=== PATIENT | male | born 1990 | race Caucasian/White ===

== ENCOUNTER 2016-12-31 16:09 | Emergency (ER) | payer SELFPAY ==
[~2016-12-31] VITALS: Ht 175.3 cm; Wt 63.5 kg
[~2016-12-31 16:09] MED LIST: ACHD5005 PO; ACYC400T21 PO; CYCL10TA9 PO; MUPI22OI TP; NAPR-243 PO; SULF-222 PO; SULF1TAB35 PO; SULF1TAB38 PO
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
--- NOTE | 2016-12-31 17:34 | Diagnostic Imaging Report ---
EXAM: Right hand at 4:28 p.m. INDICATION: Injury to third digit. FINDINGS: Three views were obtained. There is no fracture, dislocation or acute bony abnormality evident. There is degenerative disease involving the PIP joint of the fifth digit. There may be mild soft tissue edema in this area. The soft tissues are otherwise unremarkable. There is no radiopaque foreign body identified. IMPRESSION: There is no evidence for an acute bony abnormality. Dictated by: Dictated on workstation # [id number]
[2016-12-31] MEDS ORDERED: HYDROcodone/APAP 5 MG/325 MG (LORTAB) TAB PO STA (17:42)
[2016-12-31 18:00] VITALS: BP 113/81
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
== END 2016-12-31 18:01 | disposition home or self-care (01) ==
LOC: EDUNIT# 16:09 → ER 16:11
DX: S60.221A Contusion of right hand, initial encounter (principal); F15.10 Other stimulant abuse, uncomplicated; F17.210 Nicotine dependence, cigarettes, uncomplicated; W22.09XA Striking against other stationary object, initial encounter; Y92.018 Other place in single-family (private) house as the place of occurrence of the external cause; Y99.8 Other external cause status
CPT/HCPCS: 73130; 99282

== ENCOUNTER 2018-12-12 21:09 | Emergency (ER) | payer SELFPAY | END 2018-12-12 21:51 | disposition left against medical advice (07) | LOC: EDUNIT# 21:09 → ER 21:10 | DX: J02.9 Acute pharyngitis, unspecified (principal) ==